=== PATIENT | female | born 1970 | race American Indian/Alaskan Native ===

== ENCOUNTER 2017-10-02 14:01 | Emergency (ER) | payer BC, MEDICAID ==
[2017-10-02] MEDS ORDERED: NACL 0.9% 1000 ML 1,000 ML IV ONE (14:36)
[2017-10-02 14:58] LABS: Hematocrit 35.4 % (30.3-42.9); Hemoglobin 11.6 gm/dl (10.1-14.3); Mean Corpuscular HGB Conc 33 % (30-34); Mean Corpuscular Volume 75 fl (79-97); Platelet Count 378 K/mm3 (140-440); Red Cell Distribution Width 18.9 % (13.2-15.2)
[2017-10-02 15:07] LABS: Mean Corpuscular Hemoglobin 25 pg (28-32)
[2017-10-02 15:11] LABS: INR 0.74 (0.87-1.13)
[2017-10-02 15:12] LABS: Partial Thromboplastin Time 20.3 Sec. (24.2-36.6)
--- NOTE | 2017-10-02 16:53 | Ultrasound Report ---
FINAL REPORT EXAM: US PELVIC COMPLETE HISTORY: heavy vag bleeding TECHNIQUE: Ultrasound evaluation of the pelvis using TRANSABDOMINAL technique PRIORS: None. FINDINGS: Uterus measures 9.8 x 4.6 x 5.1 cm. No uterine mass. Normal homogeneous endometrium with 4.2 mm thickness. Right ovary and left ovary not visible. No pelvic cul-de-sac free fluid. IMPRESSION: No sonographic evidence of acute pelvic pathology
--- NOTE | 2017-10-02 16:58 | Ultrasound Report ---
FINAL REPORT EXAM: US TRANSVAGINAL HISTORY: heavy vag bleeding TECHNIQUE: Ultrasound evaluation of the pelvis using TRANSVAGINAL technique PRIORS: Transabdominal pelvic ultrasound 10/02/2017 FINDINGS: Uterus measures 9.8 x 4.6 x 5.1 cm. No evidence of uterine mass. Endometrial thickness is 5.1 mm. Nonspecific single tiny focus of shadowing echogenicity in the endometrium may be a small calcification. Right ovary and left ovary not visible with transabdominal and endovaginal technique. No cul-de-sac free fluid. IMPRESSION: 3 mm nonspecific punctate echogenic focus in the endometrium may be calcification, possibly vascular
--- NOTE | 2017-10-02 17:17 | Emergency Department Report ---
ED Female HPI - General Chief complaint: Vaginal Bleeding Stated complaint: HEAVY VAGINAL BLEEDING Time Seen by Provider: 10/02/17 16:04 Source: patient Mode of arrival: Ambulatory Limitations: No Limitations - History of Present Illness Initial comments: Patient is a 47-year-old female who is presenting with heavy vaginal bleeding. Patient states she's been having bleeding for the last 3 days but it got heavier today. Patient states that she change her pad approximately 2-3 times an hour. Patient says she woke up in her bases were soaked in blood. Patient does not believe she is she has a history of tubal ligation. Patient says she has some mild discomfort in suprapubic region and the right lower quadrant that is crampy in nature. Patient denies any fever or dysuria nausea vomiting diarrhea at this time. - Related Data Previous Rx's Medication Instructions Recorded Last Taken Type HYDROcodone/APAP 10-325 [[place] 1 each PO Q6HR PRN #10 tablet 10/02/17 Unknown Rx 10-325 mg TAB] Ibuprofen [Motrin 800 MG tab] 800 mg PO Q8HR PRN #15 tablet 10/02/17 Unknown Rx medroxyPROGESTERone ACETATE 10 mg PO DAILY #7 tablet 10/02/17 Unknown Rx [Provera] Allergies Allergy/AdvReac Type Severity Reaction Status Date / Time No Known Allergies Allergy Unverified 08/22/13 23:42 ED Review of Systems ROS: Stated complaint: HEAVY VAGINAL BLEEDING Other details as noted in HPI Comment: All other systems reviewed and negative ED Past Medical Hx - Past Medical History Previous Medical History?: No - Surgical History Past Surgical History?: Yes Additional Surgical History: x #. Tubal ligation - Social History Smoking Status: Never Smoker Substance Use Type: None - Medications Home Medications: Home Medications Medication Instructions Recorded Confirmed Last Taken Type HYDROcodone/APAP 10-325 [[place] 1 each PO Q6HR PRN #10 tablet 10/02/17 Unknown Rx 10-325 mg TAB] Ibuprofen [Motrin 800 MG tab] 800 mg PO Q8HR PRN #15 tablet 10/02/17 Unknown Rx medroxyPROGESTERone ACETATE 10 mg PO DAILY #7 tablet 10/02/17 Unknown Rx [Provera] ED Physical Exam - General Limitations: No Limitations General appearance: alert, in no apparent distress - Head Head exam: Present: atraumatic, normocephalic - Eye Eye exam: Present: normal appearance - ENT ENT exam: Present: mucous membranes moist - Neck Neck exam: Present: normal inspection - Respiratory Respiratory exam: Present: normal lung sounds bilaterally. Absent: respiratory distress, wheezes, rales, rhonchi - Cardiovascular Cardiovascular Exam: Present: regular rate, normal rhythm. Absent: systolic murmur, diastolic murmur, rubs, gallop - GI/Abdominal GI/Abdominal exam: Present: soft, tenderness (suprapubic), normal bowel sounds. Absent: distended, guarding, rebound - Rectal Rectal exam: Present: deferred - Extremities Exam Extremities exam: Present: normal inspection - Back Exam Back exam: Present: normal inspection - Neurological Exam Neurological exam: Present: alert, oriented X3 - Psychiatric Psychiatric exam: Present: normal affect, normal mood - Skin Skin exam: Present: warm, dry, intact, normal color. Absent: rash ED Course Vital Signs 10/02/17 10/02/17 14:14 14:42 Temperature 98.1 F Pulse Rate 116 H Respiratory 16 Rate Blood Pressure 126/83 [Right] O2 Sat by Pulse 99 Oximetry ED Medical Decision Making - Lab Data Result diagrams: 10/02/17 14:22 Lab Results 10/02/17 10/02/17 10/02/17 Range/Units 14:22 14:22 14:22 WBC 6.1 (4.5-11.0) K/mm3 RBC 4.70 (3.65-5.03) M/mm3 Hgb 11.6 (10.1-14.3) gm/dl Hct 35.4 (30.3-42.9) % MCV 75 L (79-97) fl MCH 25 L (28-32) pg MCHC 33 (30-34) % RDW 18.9 H (13.2-15.2) % Plt Count 378 (140-440) K/mm3 PT 10.8 L (12.2-14.9) Sec. INR 0.74 L (0.87-1.13) APTT 20.3 L (24.2-36.6) Sec. HCG, Qual (Negative) Blood Type O POSITIVE Antibody Screen Negative 10/02/17 Range/Units 14:38 WBC (4.5-11.0) K/mm3 RBC (3.65-5.03) M/mm3 Hgb (10.1-14.3) gm/dl Hct (30.3-42.9) % MCV (79-97) fl MCH (28-32) pg MCHC (30-34) % RDW (13.2-15.2) % Plt Count (140-440) K/mm3 PT (12.2-14.9) Sec. INR (0.87-1.13) APTT (24.2-36.6) Sec. HCG, Qual Negative (Negative) Blood Type Antibody Screen - Radiology Data Radiology results: report reviewed (FINAL REPORT ) FINAL REPORT EXAM: US TRANSVAGINAL HISTORY: heavy vag bleeding TECHNIQUE: Ultrasound evaluation of the pelvis using TRANSVAGINAL technique PRIORS: Transabdominal pelvic ultrasound 10/02/2017 FINDINGS: Uterus measures 9.8 x 4.6 x 5.1 cm. No evidence of uterine mass. Endometrial thickness is 5.1 mm. Nonspecific single tiny focus of shadowing echogenicity in the endometrium may be a small calcification. Right ovary and left ovary not visible with transabdominal and endovaginal technique. No cul-de-sac free fluid. IMPRESSION: 3 mm nonspecific punctate echogenic focus in the endometrium may be calcification, possibly vascular - Medical Decision Making Patient's hemoglobin was within normal limits she does not meet criteria for transfusion at this time. Patient be discharged home and started on Provera and will follow-up with [facility]. Critical care attestation.: If time is entered above; I have spent that time in minutes in the direct care of this critically ill patient, excluding procedure time. ED Disposition Clinical Impression: DUB (dysfunctional uterine bleeding) Uterine fibroid Qualifiers: Uterine leiomyoma location: intramural Qualified Code(s): D25.1 - Intramural leiomyoma of uterus Disposition: DC-01 TO HOME OR SELFCARE Is pt being admited?: No Does the pt Need Aspirin: No Condition: Stable Instructions: Dysfunctional Uterine Bleeding (ED) Prescriptions: HYDROcodone/APAP 10-325 [[place] 10-325 mg TAB] 1 each PO Q6HR PRN #10 tablet PRN Reason: Pain Ibuprofen [Motrin 800 MG tab] 800 mg PO Q8HR PRN #15 tablet PRN Reason: Pain medroxyPROGESTERone ACETATE [Provera] 10 mg PO DAILY #7 tablet Referrals: PRIMARY CARE, [Primary Care Provider] - 3-5 Days
[2017-10-02 17:37] VITALS: BP 132/74
== END 2017-10-02 17:39 | disposition home or self-care (01) ==
LOC: ED 14:01
DX: D25.9 Leiomyoma of uterus, unspecified (principal)
CPT/HCPCS: 36415; 76830; 76856; 84703; 85027; 85610; 85730; 86850; 86900; 86901; 99284; J7030